=== PATIENT | male | born 1950 | race Caucasian/White ===

== ENCOUNTER 2016-09-01 10:40 | Inpatient (IN) | payer OTHER ==
[2016-09-01 11:03] LABS: Glucose,Whole Blood 86 mg/dL (75-99)
[2016-09-01 11:03] LABS: Basophils # (A) 0.1 k/uL (0-0.2); Basophils % (A) 1 %; CHCM 33.9; Eosinophils # (A) 0.2 k/uL (0-0.7); Eosinophils % (A) 3 %; HCT 45.3 % (39.0-53.0); HDW 2.34; HGB 14.9 gm/dL (13.0-17.5); Luc # (Auto) 0.13; Luc % (Auto) 2; Lymphocytes # (A) 2.5 k/uL (1.0-4.8); Lymphocytes % (A) 41 %; MCH 31.2 pg (25.0-35.0); MCHC 32.9 g/dL (31.0-37.0); MCV 94.8 fL (80.0-100.0); Mean Platelet Volume 7.1; Monocytes # (A) 0.4 k/uL (0-1.0); Monocytes % (A) 6 %; Neutrophils # (A) 2.9 k/uL (1.3-7.7); Neutrophils % (A) 47 %; RBC 4.77 m/uL (4.30-5.90); RDW 12.8 % (11.5-15.5); WBC 6.2 k/uL (3.8-10.6)
--- NOTE | 2016-09-01 11:05 | ED ---
General Adult HPI - General Chief complaint: Neuro Symptoms/Deficit Stated complaint: Fall/Dementia Time Seen by Provider: 09/01/16 10:44 Source: patient, EMS, RN notes reviewed Mode of arrival: EMS Limitations: altered mental status - History of Present Illness Initial comments: Patient is a pleasant [age]-year-old male presenting to the emergency Department with change in mental status. Patient has history of dementia. Patient reportedly was taken off his dementia medicine and has had increased altered mental status over the past week. Patient was taken off of this because they felt it was not working. Patient did have a fall. Patient denies any pain. Patient is a poor historian. - Related Data Allergies Allergy/AdvReac Type Severity Reaction Status Date / Time procaine [From Novocain] Allergy Unknown Verified 09/01/16 11:07 Review of Systems ROS Statement: Those systems with pertinent positive or pertinent negative responses have been documented in the HPI. ROS Other: All systems not noted in ROS Statement are negative. Constitutional: Denies: fever Eyes: Denies: eye pain ENT: Denies: ear pain Respiratory: Denies: cough Cardiovascular: Denies: chest pain Endocrine: Denies: fatigue Gastrointestinal: Denies: abdominal pain Genitourinary: Denies: dysuria Musculoskeletal: Denies: back pain Skin: Denies: rash Neurological: Reports: confusion Past Medical History Past Medical History: Unable to Obtain, Dementia History of Any Multi-Drug Resistant Organisms: None Reported Past Surgical History: Unable to Obtain Past Psychological History: No Psychological Hx Reported Smoking Status: Former smoker Past Alcohol Use History: Rare Past Drug Use History: None Reported General Exam Limitations: altered mental status General appearance: alert, in no apparent distress, other (Patient has difficulty following some commands.) Head exam: Present: atraumatic Eye exam: Present: normal appearance, PERRL ENT exam: Present: normal oropharynx Neck exam: Present: normal inspection. Absent: tenderness, meningismus Respiratory exam: Present: normal lung sounds bilaterally Cardiovascular Exam: Present: regular rate, normal rhythm GI/Abdominal exam: Present: soft. Absent: tenderness Extremities exam: Present: normal inspection Neurological exam: Present: alert, altered, CN II-XII intact. Absent: motor sensory deficit Expanded Patient oriented to: Present: person. Absent: place, time Motor strength exam: RUE: 5, LUE: 5, RLE: 5, LLE: 5 Psychiatric exam: Present: normal affect, normal mood Skin exam: Absent: rash Course Vital Signs 09/01/16 10:52 Temperature 97.8 F Pulse Rate 55 L Respiratory 18 Rate Blood Pressure 108/55 O2 Sat by Pulse 96 Oximetry EKG Findings - EKG Comments: EKG Findings:: Sinus bradycardia at 56. Normal intervals. Normal axis. Normal QRS. Nonspecific T waves. Medical Decision Making - Medical Decision Making Patient reevaluated and resting comfortably in bed. Family is now present. Family does not feel they're able to take care of him at this time at home. Family does request admission for medication review with hopes of patient going home the future. Case was discussed in detail with Dr. Thompson, who will admit for Dr. Evans. - Lab Data Result diagrams: 09/01/16 10:49 09/01/16 10:49 Lab Results 09/01/16 09/01/16 09/01/16 Range/Units 10:49 10:49 10:49 WBC 6.2 (3.8-10.6) k/uL RBC 4.77 (4.30-5.90) m/uL Hgb 14.9 (13.0-17.5) gm/dL Hct 45.3 (39.0-53.0) % MCV 94.8 (80.0-100.0) fL MCH 31.2 (25.0-35.0) pg MCHC 32.9 (31.0-37.0) g/dL RDW 12.8 (11.5-15.5) % Plt Count 192 (150-450) k/uL Neutrophils % 47 % Lymphocytes % 41 % Monocytes % 6 % Eosinophils % 3 % Basophils % 1 % Neutrophils # 2.9 (1.3-7.7) k/uL Lymphocytes # 2.5 (1.0-4.8) k/uL Monocytes # 0.4 (0-1.0) k/uL Eosinophils # 0.2 (0-0.7) k/uL Basophils # 0.1 (0-0.2) k/uL PT (9.0-12.0) sec INR (<1.1) APTT (22.0-30.0) sec Sodium 145 (137-145) mmol/L Potassium 4.4 (3.5-5.1) mmol/L Chloride 109 H (98-107) mmol/L Carbon Dioxide 26 (22-30) mmol/L Anion Gap 10 mmol/L BUN 10 (9-20) mg/dL Creatinine 0.99 (0.66-1.25) mg/dL Est GFR (MDRD) Af Amer >60 (>60 ml/min/1.73 sqM) Est GFR (MDRD) Non-Af >60 (>60 ml/min/1.73 sqM) Glucose 87 (74-99) mg/dL POC Glucose (mg/dL) (75-99) mg/dL POC Glu Consumer Experience Consultant ID Calcium 9.5 (8.4-10.2) mg/dL Total Bilirubin 1.0 (0.2-1.3) mg/dL AST 30 (17-59) U/L ALT 47 (21-72) U/L Alkaline Phosphatase 91 (38-126) U/L Total Creatine Kinase 97 (55-170) U/L CK-MB (CK-2) 0.7 (0.0-2.4) ng/mL CK-MB (CK-2) Rel Index 0.7 Troponin I <0.012 (0.000-0.034) ng/mL Total Protein 7.1 (6.3-8.2) g/dL Albumin 4.3 (3.5-5.0) g/dL Urine Color Urine Appearance (Clear) Urine pH (5.0-8.0) Ur Specific [place] (1.001-1.035) Urine Protein (Negative) Urine Glucose (UA) (Negative) Urine Ketones (Negative) Urine Blood (Negative) Urine Nitrite (Negative) Urine Bilirubin (Negative) Urine Urobilinogen (<2.0) mg/dL Ur Leukocyte Esterase (Negative) Urine RBC (0-5) /hpf Urine WBC (0-5) /hpf Urine Bacteria (None) /hpf Urine Mucus (None) /hpf Urine Opiates Screen (NotDetected) Ur Oxycodone Screen (NotDetected) Urine Methadone Screen (NotDetected) Ur Propoxyphene Screen (NotDetected) Ur Barbiturates Screen (NotDetected) U Tricyclic Antidepress (NotDetected) Ur Phencyclidine Scrn (NotDetected) Ur Amphetamines Screen (NotDetected) U Methamphetamines Scrn (NotDetected) U Benzodiazepines Scrn (NotDetected) Urine Cocaine Screen (NotDetected) U Marijuana (THC) Screen (NotDetected) 09/01/16 09/01/16 09/01/16 Range/Units 10:49 11:02 12:21 WBC (3.8-10.6) k/uL RBC (4.30-5.90) m/uL Hgb (13.0-17.5) gm/dL Hct (39.0-53.0) % MCV (80.0-100.0) fL MCH (25.0-35.0) pg MCHC (31.0-37.0) g/dL RDW (11.5-15.5) % Plt Count (150-450) k/uL Neutrophils % % Lymphocytes % % Monocytes % % Eosinophils % % Basophils % % Neutrophils # (1.3-7.7) k/uL Lymphocytes # (1.0-4.8) k/uL Monocytes # (0-1.0) k/uL Eosinophils # (0-0.7) k/uL Basophils # (0-0.2) k/uL PT 10.2 (9.0-12.0) sec INR 1.0 (<1.1) APTT 21.2 L (22.0-30.0) sec Sodium (137-145) mmol/L Potassium (3.5-5.1) mmol/L Chloride (98-107) mmol/L Carbon Dioxide (22-30) mmol/L Anion Gap mmol/L BUN (9-20) mg/dL Creatinine (0.66-1.25) mg/dL Est GFR (MDRD) Af Amer (>60 ml/min/1.73 sqM) Est GFR (MDRD) Non-Af (>60 ml/min/1.73 sqM) Glucose (74-99) mg/dL POC Glucose (mg/dL) 86 (75-99) mg/dL POC Glu Consumer Experience Consultant ID Kate Fernandez Calcium (8.4-10.2) mg/dL Total Bilirubin (0.2-1.3) mg/dL AST (17-59) U/L ALT (21-72) U/L Alkaline Phosphatase (38-126) U/L Total Creatine Kinase (55-170) U/L CK-MB (CK-2) (0.0-2.4) ng/mL CK-MB (CK-2) Rel Index Troponin I (0.000-0.034) ng/mL Total Protein (6.3-8.2) g/dL Albumin (3.5-5.0) g/dL Urine Color Light Yellow Urine Appearance Clear (Clear) Urine pH 5.0 (5.0-8.0) Ur Specific [place] 1.004 (1.001-1.035) Urine Protein Negative (Negative) Urine Glucose (UA) Negative (Negative) Urine Ketones Negative (Negative) Urine Blood Trace H (Negative) Urine Nitrite Negative (Negative) Urine Bilirubin Negative (Negative) Urine Urobilinogen <2.0 (<2.0) mg/dL Ur Leukocyte Esterase Negative (Negative) Urine RBC 1 (0-5) /hpf Urine WBC 1 (0-5) /hpf Urine Bacteria Rare H (None) /hpf Urine Mucus Rare H (None) /hpf Urine Opiates Screen Not Detected (NotDetected) Ur Oxycodone Screen Not Detected (NotDetected) Urine Methadone Screen Not Detected (NotDetected) Ur Propoxyphene Screen Not Detected (NotDetected) Ur Barbiturates Screen Not Detected (NotDetected) U Tricyclic Antidepress Not Detected (NotDetected) Ur Phencyclidine Scrn Not Detected (NotDetected) Ur Amphetamines Screen Not Detected (NotDetected) U Methamphetamines Scrn Not Detected (NotDetected) U Benzodiazepines Scrn Detected H (NotDetected) Urine Cocaine Screen Not Detected (NotDetected) U Marijuana (THC) Screen Not Detected (NotDetected) - Radiology Data Radiology results: report reviewed (Computed tomography scan shows atrophy. No acute abnormality.), image reviewed (Two-view chest x-ray shows cardiac megaly. No acute abnormality.) Disposition Clinical Impression: Altered mental status Disposition: ADMITTED IP TO THIS HOSP
[2016-09-01 11:15] LABS: ALT 47 U/L (21-72); AST 30 U/L (17-59); Alkaline Phosphatase 91 U/L (38-126); Anion Gap 10 mmol/L; Blood Urea Nitrogen 10 mg/dL (9-20); Calcium 9.5 mg/dL (8.4-10.2); Carbon Dioxide 26 mmol/L (22-30); Chloride 109 mmol/L (98-107); Glucose 87 mg/dL (74-99); Non-African American GFR(MDRD) >60 (>60 ml/min/1.73 sqM); Potassium 4.4 mmol/L (3.5-5.1); Sodium 145 mmol/L (137-145); Total Protein 7.1 g/dL (6.3-8.2)
--- NOTE | 2016-09-01 11:24 | XR ---
EXAMINATION TYPE: XR chest 2V DATE OF EXAM: 09/01/2016 11:21 AM COMPARISON: NONE HISTORY: Altered mental status and weakness. TECHNIQUE: Frontal and lateral views of the chest are obtained. FINDINGS: There is elevated left hemidiaphragm. Underlying emphysematous change is not excluded. Ther e is no focal air space opacity, pleural effusion, or pneumothorax seen. The cardiac silhouette size is enlarged. The osseous structures are intact. IMPRESSION: Cardiomegaly without acute pulmonary process.
[2016-09-01 11:31] LABS: Creatine Kinase 97 U/L (55-170)
[2016-09-01 11:33] LABS: Prothrombin Time 10.2 sec (9.0-12.0)
[2016-09-01 11:40] LABS: Partial Thromboplastin Time 21.2 sec (22.0-30.0)
[2016-09-01 11:44] LABS: Creatine Kinase MB 0.7 ng/mL (0.0-2.4); Troponin I <0.012 ng/mL (0.000-0.034)
--- NOTE | 2016-09-01 12:10 | CT ---
EXAMINATION TYPE: CT brain wo con DATE OF EXAM: 09/01/2016 12:01 PM HISTORY: Fall/Dementia. Altered mental status. CT DLP: 1081.60 mGycm. Automated Exposure Control for Dose Reduction was Utilized. TECHNIQUE: CT scan of the head is performed without contrast. COMPARISON: CT brain June 25, 2014. FINDINGS: There is no acute intracranial hemorrhage or midline shift identified. There is diffuse v entricular and sulcal prominence consistent with diffuse age-related cerebral atrophy. There is low- attenuation in the periventricular white matter consistent with chronic small vessel ischemic change. Mild mucosal thickening involving anterior ethmoid sinuses bilaterally is present. Remainder the par anasal sinuses are clear. The globes are intact bilaterally. IMPRESSION: No acute intracranial hemorrhage or midline shift. There is mild Diffuse age-related ce rebral atrophy and chronic small vessel ischemic change redemonstrated, no significant change from pr ior study is seen
[2016-09-01 12:39] LABS: Appearance,Urine Clear (Clear); Bacteria,Urine Rare /hpf; Bilirubin,Urine Negative (Negative); Glucose,Urine (UA) Negative (Negative); Ketones,Urine Negative (Negative); Leukocyte Esterase,Urine Negative (Negative); Mucus,Urine Rare /hpf; Nitrite,Urine Negative (Negative); Particle Count 1072; Protein,Urine Negative (Negative); RBC,Urine 1 /hpf (0-5); Specific Gravity,Urine 1.004 (1.001-1.035); UA Billing (MACRO vs. MICRO) MICRO; Urobilinogen,Urine <2.0 mg/dL (<2.0); WBC,Urine 1 /hpf (0-5)
[2016-09-01] MEDS ORDERED: LORazepam 2 MG/ML SYRINGE IV STA (12:47)
[2016-09-01] MEDS ORDERED: NALOXONE 0.4 MG/ML 1 ML VIAL IV PRN (13:12)
[2016-09-01] MEDS ORDERED: LORazepam 2 MG/ML SYRINGE IV PRN (13:12)
[2016-09-01] MEDS ORDERED: NICOTINE 14MG/24HR PATCH TRANSDERM STA (13:26)
[2016-09-01] MEDS ORDERED: ALPRAZolam 0.5 MG TAB PO PRN (14:26)
[2016-09-01] MEDS: SODIUM CHLORIDE 0.9% 1,000 ML IV SCH (14:42)
[2016-09-01] MEDS ORDERED: HALOPERIDOL 1 MG TAB PO STA (16:00)
[2016-09-01 16:40] VITALS: BMI 29.5
[2016-09-01] MEDS: LORazepam 2 MG/ML SYRINGE IV PRN (18:54)
--- NOTE | 2016-09-01 20:11 | P.CNNES ---
History of Present Illness Consult date: 09/01/16 Requesting physician: Marcial Espinoza Chief complaint: Altered Mental Status History of Present Illness: Patient is a pleasant 66-year-old male being consulted on by neurology for altered mental status. Patient has history of dementia. Patient reportedly was taken off his dementia medicine and has had increased altered mental status with periods of agitation over the past week. Patient was taken off of this because they felt it was not working per PCP. Patient did have a fall at home witnessed by his . Patient denies any pain. Patient is a poor historian. All information obtained from spouse. At this time upon examination, patient was alert to name in bed with family at the bedside. Patient had a sitter in the room due to agitation. Patient's states that the patient has significantly declined in the last 48 hours in regard to wandering, agitation and generalized increased confusion. Review of Systems all systems not previously noted in HPI above are negative Past Medical History Past Medical History: Dementia, GERD/Reflux, Memory Impairment History of Any Multi-Drug Resistant Organisms: None Reported Past Surgical History: Unable to Obtain Additional Past Surgical History / Comment(s): colonoscopy Past Psychological History: ADD/ADHD, Anxiety, Depression Additional Psychological History / Comment(s): no longer on meds for adhd Smoking Status: Current every day smoker Past Alcohol Use History: Rare Past Drug Use History: None Reported - Past Family History Father Family Medical History: Cancer Additional Family Medical History / Comment(s): lung Mother Family Medical History: Cancer Additional Family Medical History / Comment(s): lung Medications and Allergies Home Medications Medication Instructions Recorded Confirmed Type ALPRAZolam [Xanax] 1 mg PO QID PRN 09/01/16 09/01/16 History Cholecalciferol [Vitamin D3] 1,000 unit PO DAILY 09/01/16 09/01/16 History Cyanocobalamin [Vitamin B-12] 500 mcg PO DAILY 09/01/16 09/01/16 History Escitalopram [Lexapro] 10 mg PO DAILY 09/01/16 09/01/16 History Allergies Allergy/AdvReac Type Severity Reaction Status Date / Time procaine [From Novocain] Allergy Unknown Verified 09/01/16 13:23 Physical Examination - Vital Signs Vital Signs: Vital Signs Temp Pulse Pulse Resp BP BP Pulse Ox 09/01/16 16:58 97.2 F L 53 L 18 150/67 98 09/01/16 13:20 98 F 60 20 130/68 95 Intake and Output 09/01/16 09/01/16 09/01/16 06:59 14:59 22:59 Other: Weight 93.2 kg Patient Weight 09/02/16 06:59 Weight 93.2 kg Constitutional: AOx1, uncooperative Head: NC/AT Throat: Supple, no masses Respiratory: No increased work of breathing Cardiac: Regular rate and Rhythm GI: non tender, non distended Musculoskeletal: does not follow commands Neurological: does not follow commands, moves all extremities purposefully Integementary: no rash, no erythema Psychiatric: extremely confused, agitated Results - Laboratory Findings CBC and BMP: 09/01/16 10:49 09/01/16 10:49 - Diagnostic Findings Comments: CT of the brain revealed no acute intracranial process. Assessment and Plan (1) Altered mental status Status: Acute Plan: 1. Altered mental status: Patient is known to have dementia and appears to have increased altered mental status. At this time all testing has been negative. Further diagnostic workup including EEG, carotid Doppler, serum homocystine, B12 level, TSH, MRI of the brain are pending. Patient was placed back on Aricept 10 mg daily at bedtime. Patient was also prescribed Haldol 1 mg every 12 hours for agitation. Status:neurology will continue to follow updates as needed or warranted. If you have any questions please feel free to contact our office. I discussed the patient's pertinent medical information with Dr. Owusu. He agrees with the plan of care as implemented.
[2016-09-01] MEDS: HALOPERIDOL 1 MG TAB PO SCH (22:17)
[2016-09-01] MEDS: DONEPEZIL 10 MG TAB PO SCH (22:17)
[2016-09-02] MEDS: CYANOCOBALAMIN 500 MCG TAB PO SCH (08:16)
[2016-09-02] MEDS: ESCITALOPRAM 10 MG TAB PO SCH (08:16)
[2016-09-02] MEDS: HALOPERIDOL 1 MG TAB PO SCH ×2 (08:16→22:44)
[2016-09-02] MEDS: CHOLECALCIFEROL 1,000 UNIT TAB PO SCH (08:16)
--- NOTE | 2016-09-02 08:18 | HP ---
DATE OF SERVICE: 09/01/2016 CHIEF COMPLAINT: Altered mental status changes. HISTORY OF PRESENT ILLNESS: Mr. Rizvi is a 66-year-old male with past medical history of dementia, GERD, anxiety, depression, brought in by his family members for change in his mental status. The patient has history of dementia which was diagnosed 2 years back and it has been rapidly progressive. The patient cannot give me any history so most of it is taken from his who is at the bedside. mentions that over the past 48 hours his mentation has changed. He has been agitated and then trying to get out of the bed. Had a couple of falls at home and so she brought him in for further evaluation. As per his , patient was diagnosed with dementia only 2 years back, but has been progressively deteriorating. Now she cannot leave him all alone by himself. She has to stay with him /, but over the past 48 hours, he has been agitated and did not get to sleep. She also mentions that his brother also had similar kind of situation in the past and he is . Review of systems cannot be done as the patient is agitated and could not give any history. ALLERGIES: PROCAINE. PAST MEDICAL HISTORY: Positive for dementia and gastroesophageal reflux disease. Patient's home medications: 1. He is on vitamin B12 5000 mcg p.o. daily. 2. Lexapro 10 mg p.o. daily. 3. Vitamin D 3000 units p.o. daily. 4. Xanax 1 mg q.i.d. p.r.n. for anxiety. SOCIAL HISTORY: The patient is a former smoker. No alcohol abuse. FAMILY HISTORY: Positive for dementia in his brother who is . PAST SURGICAL HISTORY: None reported. On examination, patient's vitals: Temperature 97.2, heart rate is 50 to 60, respiratory rate 18, blood pressure 150/67, saturating at 98% on room air. GENERAL EXAMINATION: The patient to be in no acute distress, but is very agitated and trying to get out of the bed and moving all his extremities. HEAD: Atraumatic. EYES: Pupils round and reactive to light. NECK: No JVD. No thyromegaly. CARDIOVASCULAR: S1, S2 heard. RESPIRATORY: Bilateral breath sounds are positive. GI: Abdomen is soft. Bowel sounds positive. No tenderness. No guarding. EXTREMITIES: No edema. No cyanosis. CHIEF FINANCIAL OFFICER: He is awake, cannot follow commands. No focal neurological deficits. PSYCHIATRIC: Patient is agitated. MUSCULOSKELETAL: No joint swellings or deformities. The patient's labs: White count of 6.2, hemoglobin is 14.9, platelets of 192, sodium 145, potassium 4.4, chloride 109, bicarb 26, BUN 10, creatinine 0.99. UA is negative for UTI. UDS is positive for benzos. Patient did get a chest x-ray that was negative for any cardiopulmonary process and also had a CT scan of the brain, which was negative for any serum infarct or bleed. ASSESSMENT AND PLAN: Encephalopathy of unclear etiology currently at present, but can be due to progressive worsening of his dementia. Neurology services have been consulted and patient he is scheduled to get an MRI of the brain along with EEG. Will also check him for syphilis and hypothyroidism. Will rule out the reversible causes of dementia. We will resume patient's home medications as the patient is agitated. He has been getting Ativan with no improvement, so he has been placed on Haldol. Will also get a sitter at the bedside. Overall prognosis is guarded. The treatment care plan was discussed with his and will also have social services counselor on board and further recommendations to follow depending on the progress of the patient. BILLIE
[2016-09-02] MEDS: LORazepam 2 MG/ML SYRINGE IV PRN ×2 (10:18→17:18)
[2016-09-02] MEDS: NICOTINE 21MG/24HR PATCH TRANSDERM SCH (11:20)
--- NOTE | 2016-09-02 11:32 | US ---
EXAMINATION TYPE: US carotid duplex BILAT DATE OF EXAM: 09/02/2016 11:22 AM COMPARISON: NONE CLINICAL HISTORY: ams. exam done portably on restless Alzheimer patient. EXAM MEASUREMENTS: RIGHT: Peak Systolic Velocity (PSV) cm/sec ----- Right CCA: 67.1 ----- Right ICA: 93.3 ----- Right ECA: 70.2 ICA/CCA ratio: 1.4 RIGHT: End Diastole cm/sec ----- Right CCA: 20.9 ----- Right ICA: 23.0 ----- Right ECA: 13.1 LEFT: Peak Systolic Velocity (PSV) cm/sec ----- Left CCA: 67.1 ----- Left ICA: 100.0 ----- Left ECA: 104.8 ICA/CCA ratio: 1.5 LEFT: End Diastole cm/sec ----- Left CCA: 14.7 ----- Left ICA: 37.0 ----- Left ECA: 16.0 VERTEBRALS (direction of flow): Right Vertebral: Antegrade Left Vertebral: Antegrade TECHNOLOGIST IMPRESSION: No significant stenosis seen, no elevated velocities, mild plaque noted. Grayscale, color Doppler, spectral Doppler imaging performed of the carotid arteries. Mild atheromato us changes are present. IMPRESSION: No hemodynamically significant stenosis of the proximal internal carotid arteries bilate rally by Doppler criteria, and indirect measurement of carotid stenosis
[2016-09-02] MEDS: SODIUM CHLORIDE 0.9% 1,000 ML IV SCH (12:23)
--- NOTE | 2016-09-02 14:19 | P.PN ---
Subjective Principal diagnosis: Dementia possible Lewy body disorder Patient is a 66-year-old male being followed by neurology for altered mental status secondary to history of dementia. Patient poorly was taken off his dementia medication as had increased altered mental status with periods of agitation over the past week. Patient was taken off this because they felt it was not working per PCP. Patient did have a fall at home witnessed by his . Patient denies any pain. Patient is a poor historian. All information obtained from spouse. At this time upon examination, patient was alert to name and bed side. Patient had significantly less agitation today than yesterday after being started on Haldol every 12 hours. He was still only responsive to name. Objective - Vital Signs Vital signs: Vital Signs Temp 99.4 F 09/02/16 06:59 Pulse 59 L 09/02/16 06:59 Resp 20 09/02/16 06:59 BP 121/69 09/02/16 06:59 Pulse Ox 94 L 09/02/16 06:59 Intake & Output 09/01/16 09/02/16 09/02/16 18:59 06:59 18:59 Weight 93.2 kg Other: # Voids 1 - Exam Constitutional: AOx1, cooperative Head: NC/AT Throat: Supple, no masses Respiratory: No increased work of breathing Cardiac: Regular rate and Rhythm GI: non tender, non distended Musculoskeletal: does not follow commands Neurological: does not follow commands, moves all extremities purposefully. Integementary: no rash, no erythema Psychiatric: mood and affect appropriate - Labs CBC & Chem 7: 09/01/16 10:49 09/01/16 10:49 Assessment and Plan (1) Altered mental status Status: Acute Plan: 1. Altered mental status secondary to dementia: Patient is known to have dementia and appears to have increased altered mental status. At this time all testing has been negative. Further diagnostic workup including EEG-still pending, carotid Doppler was normal, serum homocystine still pending, B12 level was normal, TSH was normal, MRI of the brain still pending. Patient was placed back on Aricept 10 mg daily at bedtime. Patient was also prescribed Haldol 1 mg every 12 hours for agitation which does appear to have decreased his agitation. Continue Haldol existing dose and frequency. altered mental status appears likely secondary to progression of his dementia. Status:neurology will continue to follow updates as needed or warranted. If you have any questions please feel free to contact our office. I discussed the patient's pertinent medical information with Dr. Owusu. He agrees with the plan of care as implemented.
[2016-09-02] MEDS: DONEPEZIL 10 MG TAB PO SCH (22:44)
--- NOTE | 2016-09-03 08:22 | P.PN ---
Subjective Principal diagnosis: This is a continue progress on a 66-year-old white male essentially admitted for worsening dementia. He is now on Aricept and Haldol. Seems much more calm today. Otherwise, had a long discussion with his who states that this is the first time that he has slept in the last 3 days. The patient seems much more relaxed but the is concerned that she might not be able to take care of him in his current mental state. EEG is pending. I do appreciate neurology input. Objective - Vital Signs Vital signs: Vital Signs Temp 97.3 F L 09/03/16 07:00 Pulse 65 09/03/16 07:00 Resp 18 09/03/16 07:00 BP 116/72 09/03/16 07:00 Pulse Ox 95 09/03/16 07:00 Intake & Output 09/02/16 09/03/16 09/03/16 18:59 06:59 18:59 Intake Total 550 Balance 550 Intake: Oral 550 Other: # Voids 3 4 # Bowel Movements 2 - Constitutional General appearance: Present: average body habitus - Neck Neck: Absent: lymphadenopathy - Respiratory Respiratory: bilateral: CTA - Cardiovascular Rhythm: regular Heart sounds: normal: S1, S2 - Gastrointestinal General gastrointestinal: Present: soft. Absent: tenderness - Neurologic Neurologic Comment(s): Disoriented to time and place. - Psychiatric Psychiatric: Absent: appropriate affect - Labs CBC & Chem 7: 09/01/16 10:49 09/01/16 10:49 Assessment and Plan (1) Dementia Status: Acute (2) Agitation Status: Acute (3) Altered mental status Status: Acute Plan: Continue current regimen medication. I worry about prognosis and his ability to be taken care of at home. Discharge planning/community mental health social worker. Await EEG. Time with Patient: Less than 30
[2016-09-03] MEDS: HALOPERIDOL 1 MG TAB PO SCH ×2 (08:38→20:07)
[2016-09-03] MEDS: NICOTINE 21MG/24HR PATCH TRANSDERM SCH (08:38)
[2016-09-03] MEDS: CHOLECALCIFEROL 1,000 UNIT TAB PO SCH (08:38)
[2016-09-03] MEDS: CYANOCOBALAMIN 500 MCG TAB PO SCH (08:38)
[2016-09-03] MEDS: ESCITALOPRAM 10 MG TAB PO SCH (08:39)
--- NOTE | 2016-09-03 08:46 | PN ---
DATE OF SERVICE: 09/02/2016 Chief complaint is altered mental status changes. HOSPITAL COURSE: Mr. Rizvi is a 66-year-old male with the past medical history of dementia, GERD, anxiety, depression, brought in by his family members with acute change in his mental status. Patient has history of dementia that has progressively worsened over the past 2 weeks, but they noticed a significant change in his mentation in the past 48 hours as he was much agitated and trying to get out of the bed and did not sleep for the past couple of days. As the patient was very restless in the hospital, he has been started on Haldol by Neurology and patient did calm down with Haldol and he is also getting Ativan on p.r.n. basis. Current, the patient seems to be having a nap. His is at the bedside. Review of systems could not be done as the patient does not provide any history. Patient's medications have been reviewed. On examination, patient's vital signs temperature 99.4, heart rate 59, respiratory rate 20, blood pressure 121/69, saturating at 94% on room air. GENERAL EXAMINATION: Patient is comfortably sleeping in the bed, appears to be in no acute distress. Head is atraumatic. CARDIOVASCULAR: S1, S2 heard. RESPIRATORY: Bilateral breath sounds are positive. GI: Abdomen is soft. Bowel sounds positive. EXTREMITIES: No edema. No cyanosis. Patient's labs: No new labs from this morning. The last set that were ordered by Neurology are still pending. ASSESSMENT AND PLAN: 1. Encephalopathy, most likely secondary to a progressive worsening of his dementia. Neurology has been consulted and as per their request, patient is getting some lab work done but they also requested that the patient should be getting a MRI which I am really not sure if the patient will be able to stay still while getting an MRI. 2. Acute agitation. Patient seems to be well with Haldol. 3. Gastroesophageal reflux disease. 4. Anxiety and depression. 5. Family history of Lewy Body dementia in his brother. PLAN: Currently and AYDIN was found in the pending neurology decorous. GI: Patient is doing better on Haldol, continue with it and overall prognosis is guarded. The treatment care plan was discussed with the patient's who was at the bedside and further recommendations depending on the progress of the patient. MTDD
[2016-09-03] MEDS ORDERED: LORazepam 2 MG/ML SYRINGE IV ONE ×2 (11:29→11:50)
[2016-09-03] MEDS: TIMOLOL 0.5% OPHTH DROPS 5 ML BTL RIGHT EYE SCH (11:52)
[2016-09-03] MEDS ORDERED: LORazepam 2 MG/ML SYRINGE ONE (14:08)
[2016-09-03] MEDS: SODIUM CHLORIDE 0.9% 1,000 ML IV SCH (14:11)
--- NOTE | 2016-09-03 15:10 | MR ---
EXAMINATION TYPE: MR brain wo con DATE OF EXAM: 09/03/2016 3:00 PM COMPARISON: NONE HISTORY: Alter mental status T1-weighted sagittal, T2, FLAIR, and diffusion axial views of the brain are submitted. Patient could not continue with additional sequences. There is no evidence of acute ischemia. The ventricles, basal cisterns, and sulci overlying the conv exities are consistent with moderate degenerative change. Periventricular and deep white matter areas of abnormal signal are nonspecific.. There is no mass effect. Craniocervical junction maintained. Sella turcica has a normal appearance. No cerebellopontine angle mass. Changes of chronic sinusitis noted. IMPRESSION: 1. Limited exam demonstrates acute intracranial process. 2. Nonspecific white matter changes. BE seen with remote ischemia, demyelinating process and other et iologies. Remote microvascular ischemia favored. 3. The vertebral basilar system is diminutive. Correlate for vertebrobasilar insufficiency. If clinic ally warranted MRA could be obtained.
--- NOTE | 2016-09-03 20:01 | P.PN ---
Subjective Principal diagnosis: Dementia - family history of Lewy body disorder Patient is a 66-year-old male being followed by neurology for altered mental status secondary to history of dementia. Patient poorly was taken off his dementia medication as had increased altered mental status with periods of agitation over the past week. Patient was taken off this because they felt it was not working per PCP. Patient did have a fall at home witnessed by his . Patient denies any pain. Patient is a poor historian. All information obtained from spouse. At this time upon examination, patient was alert to name at bed side. Patient had significantly less agitation today than yesterday after being started on Haldol every 12 hours. He was still only responsive to name, but was ambulating with assistance. He was unsteady on his feet and needs assistance with all ambulation activities and at times needs a two person assist. Patient's states that since the Aricept was added along with Haldol, he has become less agitated over time. She is pleased with his demeanor but is very concerned about his safety and risk for falls. Patient was in no acute distress on contact. Objective - Vital Signs Vital signs: Vital Signs Temp 97.5 F L 09/03/16 15:00 Pulse 64 09/03/16 15:00 Resp 20 09/03/16 15:00 BP 119/79 09/03/16 15:00 Pulse Ox 98 09/03/16 15:00 Intake & Output 09/03/16 09/03/16 09/04/16 06:59 18:59 06:59 Intake Total 550 Balance 550 Intake: Oral 550 Other: # Voids 4 3 - Exam Constitutional: AOx1, cooperative Head: NC/AT Throat: Supple, no masses Respiratory: No increased work of breathing Cardiac: Regular rate and Rhythm GI: non tender, non distended Musculoskeletal: Accessioner strengths are equal bilaterally 5/5, Lower extremity strengths are equal bilaterally at 3/5 and unsteady. Neurological: CN II-XII in tact, patient was AOx1, speech and language are incongruent with thought , no unilateralizing weakness, no seizure activity note on physical exam. Sensation was normal. Integementary: no rash, no erythema Psychiatric: mood is blunted, patient is very confused - Labs CBC & Chem 7: 09/01/16 10:49 09/01/16 10:49 Assessment and Plan (1) Altered mental status Status: Acute Plan: 1. Altered mental status secondary to dementia: Patient is known to have dementia and appears to have increased altered mental status. At this time all testing has been negative. Further diagnostic workup including EEG-still pending, carotid Doppler was normal, serum homocystine still pending, B12 level was normal, TSH was normal, MRI of the brain still pending. Patient was placed back on Aricept 10 mg daily at bedtime. Patient was also prescribed Haldol 1 mg every 12 hours for agitation which does appear to have decreased his agitation. Continue Haldol existing dose and frequency and Aricept existing dose and frequency at discharge. altered mental status appears likely secondary to progression of his dementia. Recommend discussion about significant home care services or placement any suitable facility for long-term care and treatment. Patient is a safety risk due to increased risk for falls, disorientation, agitation. Status:neurology will clear the patient for discharge from a neurological standpoint. Patient to follow-up in our office within 10-14 days for medication adjustment reassessment. I discussed the patient's pertinent medical information with Dr. Owusu. He agrees with the plan of care as implemented.
[2016-09-03] MEDS: DONEPEZIL 10 MG TAB PO SCH (20:07)
[2016-09-04] MEDS: NICOTINE 21MG/24HR PATCH TRANSDERM SCH (07:53)
[2016-09-04] MEDS: CYANOCOBALAMIN 500 MCG TAB PO SCH (07:53)
[2016-09-04] MEDS: ESCITALOPRAM 10 MG TAB PO SCH (07:53)
[2016-09-04] MEDS: CHOLECALCIFEROL 1,000 UNIT TAB PO SCH (07:53)
[2016-09-04] MEDS: HALOPERIDOL 1 MG TAB PO SCH ×2 (07:53→20:11)
[2016-09-04] MEDS: TIMOLOL 0.5% OPHTH DROPS 5 ML BTL RIGHT EYE SCH (07:53)
--- NOTE | 2016-09-04 08:29 | P.PN ---
Subjective Principal diagnosis: This is a continue progress on a 66-year-old white male essentially admitted for worsening dementia. He is now on Aricept and Haldol. Seems much more calm today. This is a 66-year-old white male essentially admitted for altered mental status and worsening dementia. He seems to be regressing a little bit this morning. Question medication issues and tolerance. Ativan seems to make himself agitated at times. Otherwise, had a long discussion with his who is resigned to the fact that he most likely needs long-term care.ADLS are Difficult and he is a 2 person transfer at this time. Objective - Vital Signs Vital signs: Vital Signs Temp 99.5 F 09/04/16 07:00 Pulse 66 09/04/16 07:00 Resp 16 09/04/16 07:00 BP 118/71 09/04/16 07:00 Pulse Ox 95 09/04/16 07:00 Intake & Output 09/03/16 09/04/16 09/04/16 18:59 06:59 18:59 Intake Total 370 Balance 370 Intake: Oral 370 Other: # Voids 3 2 - Constitutional General appearance: Present: average body habitus - EENT Eyes: Absent: abnormal pupil - Respiratory Respiratory: bilateral: CTA - Cardiovascular Rhythm: regular Heart sounds: normal: S1, S2 - Gastrointestinal General gastrointestinal: Present: scaphoid, soft. Absent: tenderness - Neurologic Neurologic Comment(s): Dementia behavior with poor memory. He is barely able to follow commands appropriately today. - Musculoskeletal Musculoskeletal: Present: generalized weakness - Psychiatric Psychiatric: Absent: intact judgment & insight - Labs CBC & Chem 7: 09/01/16 10:49 09/01/16 10:49 Assessment and Plan (1) Dementia Status: Acute (2) Agitation Status: Acute (3) Altered mental status Status: Acute Plan: Continue discharge planning element. EEG is pending. MRI result is also pending. Appreciate neurology input. Prognosis is guarded secondary to his multiple mental issues and cognitive deficits
[2016-09-04] MEDS: SODIUM CHLORIDE 0.9% 1,000 ML IV SCH (12:26)
[2016-09-04] MEDS: DONEPEZIL 10 MG TAB PO SCH (20:11)
[2016-09-05] MEDS: TIMOLOL 0.5% OPHTH DROPS 5 ML BTL RIGHT EYE SCH (07:38)
[2016-09-05] MEDS: NICOTINE 21MG/24HR PATCH TRANSDERM SCH (07:38)
[2016-09-05] MEDS: ESCITALOPRAM 10 MG TAB PO SCH (07:38)
[2016-09-05] MEDS: CYANOCOBALAMIN 500 MCG TAB PO SCH (07:38)
[2016-09-05] MEDS: HALOPERIDOL 1 MG TAB PO SCH ×2 (07:38→20:17)
[2016-09-05] MEDS: CHOLECALCIFEROL 1,000 UNIT TAB PO SCH (07:38)
--- NOTE | 2016-09-05 08:09 | P.PN ---
Subjective Principal diagnosis: This is a continue progress on a 66-year-old white male essentially admitted for worsening dementia. He is now on Aricept and Haldol. Seems much more calm today. This is a continue present on a 66-year-old white male who is essentially admitted for altered mental status and generalized debility and weakness. He is struggling with severe dementia. EEG is pending today. Had a long discussion with the yesterday who states probable ECF placement. The patient still is disoriented to time and place. The patient does not complain of any significant pain or voiding symptoms. Objective - Vital Signs Vital signs: Vital Signs Temp 97.7 F 09/05/16 07:00 Pulse 66 09/05/16 07:00 Resp 17 09/05/16 07:00 BP 132/75 09/05/16 07:00 Pulse Ox 94 L 09/05/16 07:00 Intake & Output 09/04/16 09/05/16 09/05/16 18:59 06:59 18:59 Other: # Voids 3 1 # Bowel Movements 1 - Constitutional General appearance: Present: cooperative. Absent: average body habitus - EENT Eyes: Absent: abnormal pupil - Respiratory Respiratory: bilateral: CTA - Cardiovascular Rhythm: regular Heart sounds: normal: S1, S2 - Gastrointestinal General gastrointestinal: Absent: tenderness - Neurologic Neurologic Comment(s): Disorientation. - Psychiatric Psychiatric: Absent: intact judgment & insight - Labs CBC & Chem 7: 09/01/16 10:49 09/01/16 10:49 Assessment and Plan (1) Dementia Status: Acute (2) Agitation Status: Acute (3) Altered mental status Status: Acute Plan: Worsening dementia. Probable placement. Await EEG. Anticipate placement in the next 24 hours. Chart planning has been consulted. Time with Patient: Less than 30
--- NOTE | 2016-09-05 12:04 | EEG ---
DATE OF SERVICE: 09/04/2016 REASON FOR TESTING: Altered mental status. AGE: 66Y DESCRIPTION OF THE PROCEDURE: This EEG was performed using a 21-channel digital electroencephalograph, following the international 10 - 20 system. DESCRIPTION OF THE RECORDING: From the beginning of the tracing, and with the patient's eyes closed, the background rhythm was mostly consisting of 6 to 7 Hz theta frequency in the posterior occipital leads. No obvious asymmetry is seen. Occasional movement artifacts and muscle artifacts are seen. Photic stimulation was performed with a minimal driving response seen. No pathological waves were elicited. Hyperventilation was not performed. The patient remains awake throughout the tracing. No epileptiform discharges were seen. INTERPRETATION: This awake EEG is abnormal due to the presence of generalized slowing of the background rhythm, mostly in the theta range. This is consistent with mild encephalopathy. No epileptiform discharges were seen. The absence of epileptiform discharges does not rule out the diagnosis of epilepsy, therefore, clinical correlation is recommended.
[2016-09-05] MEDS: DONEPEZIL 10 MG TAB PO SCH (20:17)
[2016-09-06] MEDS: NICOTINE 21MG/24HR PATCH TRANSDERM SCH (07:52)
[2016-09-06] MEDS: CHOLECALCIFEROL 1,000 UNIT TAB PO SCH (07:52)
[2016-09-06] MEDS: CYANOCOBALAMIN 500 MCG TAB PO SCH (07:53)
[2016-09-06] MEDS: TIMOLOL 0.5% OPHTH DROPS 5 ML BTL RIGHT EYE SCH (07:53)
[2016-09-06] MEDS: ESCITALOPRAM 10 MG TAB PO SCH (07:53)
[2016-09-06] MEDS: HALOPERIDOL 1 MG TAB PO SCH (07:53)
[2016-09-06 08:01] VITALS: BP 121/67; PULSE 63; RESP 18; TEMP 98.6
--- NOTE | 2016-09-06 08:04 | P.DS ---
Providers Date of admission: 09/01/16 13:13 Attending physician: Casey Evans Primary care physician: aCsey Evans - Discharge Diagnosis(es) (1) Dementia Current Visit: Yes Status: Acute (2) Agitation Current Visit: Yes Status: Acute (3) Altered mental status Current Visit: Yes Status: Acute Hospital Course: This is a discharge/transfer summary 66-year-old white male with worsening dementia. He was admitted essentially because the family could not take care of him. He was stabilized from a neurologic standpoint with Haldol and appropriate Xanax. Aricept was restarted. The patient is now stable, we are ascertaining whether he should go to ECF versus home with home health. The patient will be discharged/transferred today once that decision is made. Hopefully, we will be due appropriate rehab at either location. He is discharged in fair condition stable but somewhat a poor prognostic indicator related to his dementia Patient Condition at Discharge: Stable Plan - Discharge Summary Discharge Medication List ALPRAZolam [Xanax] 1 mg PO QID PRN 09/01/16 [History] Cholecalciferol [Vitamin D3] 1,000 unit PO DAILY 09/01/16 [History] Cyanocobalamin [Vitamin B-12] 500 mcg PO DAILY 09/01/16 [History] Escitalopram [Lexapro] 10 mg PO DAILY 09/01/16 [History] Follow up Appointment(s)/Referral(s): Casey Evans MD [Primary Care Provider] - 1 Week Discharge Disposition: TRANSFER TO SNF/ECF
== END 2016-09-06 10:22 | disposition home or self-care (01) | DRG 884 ==
LOC: EC 10:40 → 4MS4W 13:13
PROVIDERS: ADMIT Family Medicine; ATTEND Family Medicine
DX: F03.90 Unspecified dementia, unspecified severity, without behavioral disturbance, psychotic disturbance, mood disturbance, and anxiety (principal); G94 Other disorders of brain in diseases classified elsewhere; K21.9 Gastro-esophageal reflux disease without esophagitis; R00.1 Bradycardia, unspecified; F41.9 Anxiety disorder, unspecified; R45.1 Restlessness and agitation; F32.9 Major depressive disorder, single episode, unspecified; R53.1 Weakness; R26.81 Unsteadiness on feet; F90.9 Attention-deficit hyperactivity disorder, unspecified type; Z88.6 Allergy status to analgesic agent; Z87.891 Personal history of nicotine dependence; Z82.0 Family history of epilepsy and other diseases of the nervous system; Z79.899 Other long term (current) drug therapy; Z80.1 Family history of malignant neoplasm of trachea, bronchus and lung; W19.XXXA Unspecified fall, initial encounter; Y92.019 Unspecified place in single-family (private) house as the place of occurrence of the external cause
CPT/HCPCS: 36415; 70450; 70551; 71020; 80053; 80306; 81001; 82550; 82553; 82607; 83090; 84443; 84484; 85025; 85610; 85730; 93005; 93880; 95816; 96374; 99285

== ENCOUNTER 2016-10-10 13:35 | Inpatient (IN) | payer OTHER ==
--- NOTE | 2016-10-10 14:19 | ED ---
General Adult HPI - General Chief complaint: Altered Mental Status Stated complaint: Altered Mental Status Time Seen by Provider: 10/10/16 13:43 Source: EMS, RN notes reviewed, old records reviewed Mode of arrival: EMS Limitations: no limitations - History of Present Illness Initial comments: This is a 66-year-old male with a ER for evaluation today. Patient is presenting for evaluation of increased altered mental status worsening dementia non-redirectable, multiple falls. Patient suffers from severe dementia. Patient is recently started on Seroquel about a month ago which was keeping food try, at this point that medication is resolved from working. Patient's of is nonverbal. Family states patient is having multiple falls and multiple complaints - Related Data Home Medications Medication Instructions Recorded Confirmed ALPRAZolam [Xanax] 1 mg PO 5XD PRN 09/01/16 10/10/16 Cholecalciferol [Vitamin D3] 1,000 unit PO DAILY 09/01/16 10/10/16 Cyanocobalamin [Vitamin B-12] 500 mcg PO DAILY 09/01/16 10/10/16 Escitalopram Oxalate [Lexapro] 20 mg PO HS 10/10/16 10/10/16 QUEtiapine FUMARATE [SEROquel] 25 mg PO QAM 10/10/16 10/10/16 QUEtiapine [SEROquel] 50 mg PO HS 10/10/16 10/10/16 Previous Rx's Medication Instructions Recorded Donepezil [Aricept] 10 mg PO HS #30 tab 09/06/16 Timolol 0.5% Ophth Soln [Timoptic 1 drops RIGHT EYE DAILY ml 09/06/16 0.5% Ophth Soln] Allergies Allergy/AdvReac Type Severity Reaction Status Date / Time procaine [From Novocain] Allergy Unknown Verified 10/10/16 14:37 haloperidol [From Haldol] AdvReac AGITATION Verified 10/10/16 14:37 lorazepam [From Ativan] AdvReac AGITATION Verified 10/10/16 14:37 Review of Systems ROS Statement: Those systems with pertinent positive or pertinent negative responses have been documented in the HPI. ROS Other: All systems not noted in ROS Statement are negative. Past Medical History Past Medical History: Dementia, GERD/Reflux, Memory Impairment History of Any Multi-Drug Resistant Organisms: None Reported Past Surgical History: Unable to Obtain Additional Past Surgical History / Comment(s): colonoscopy Past Psychological History: ADD/ADHD, Anxiety, Depression Additional Psychological History / Comment(s): no longer on meds for adhd Smoking Status: Current every day smoker Past Alcohol Use History: Rare Past Drug Use History: None Reported - Past Family History Father Family Medical History: Cancer Additional Family Medical History / Comment(s): lung Mother Family Medical History: Cancer Additional Family Medical History / Comment(s): lung General Exam Limitations: altered mental status, physical limitation General appearance: alert, in no apparent distress Head exam: Present: atraumatic, normocephalic, normal inspection Eye exam: Present: normal appearance, PERRL, EOMI. Absent: scleral icterus, conjunctival injection, periorbital swelling ENT exam: Present: normal exam, mucous membranes moist Neck exam: Present: normal inspection. Absent: tenderness, meningismus, lymphadenopathy Respiratory exam: Present: normal lung sounds bilaterally. Absent: respiratory distress, wheezes, rales, rhonchi, stridor Cardiovascular Exam: Present: regular rate, normal rhythm, normal heart sounds. Absent: systolic murmur, diastolic murmur, rubs, gallop, clicks GI/Abdominal exam: Present: soft, normal bowel sounds. Absent: distended, tenderness, guarding, rebound, rigid Extremities exam: Present: normal inspection, full ROM, normal capillary refill. Absent: tenderness, pedal edema, joint swelling, calf tenderness Back exam: Present: normal inspection Neurological exam: Present: alert, oriented X3, CN II-XII intact Psychiatric exam: Present: normal affect, normal mood Skin exam: Present: warm, dry, intact, normal color. Absent: rash Course Vital Signs 10/10/16 13:38 Temperature 98.2 F Pulse Rate 69 Respiratory 18 Rate Blood Pressure 124/64 O2 Sat by Pulse 100 Oximetry EKG Findings - EKG Comments: EKG Findings:: EKG shows normal sinusrhythm rate of 60, MT 132, QRS 94, QTC 404 Medical Decision Making - Medical Decision Making 66 male here for evaluation of increased dementia and agitation, positive x-ray for pneumonia, patient be admitted for treatment of pneumonia and stimulation by neurology - Lab Data Result diagrams: 10/10/16 14:00 10/10/16 14:00 Lab Results 04/26/17 04/26/17 04/26/17 Range/Units 14:00 14:00 14:00 WBC 7.2 (3.8-10.6) k/uL RBC 4.45 (4.30-5.90) m/uL Hgb 14.3 (13.0-17.5) gm/dL Hct 40.6 (39.0-53.0) % MCV 91.2 (80.0-100.0) fL MCH 32.1 (25.0-35.0) pg MCHC 35.2 (31.0-37.0) g/dL RDW 12.6 (11.5-15.5) % Plt Count 212 (150-450) k/uL Neutrophils % 52 % Lymphocytes % 37 % Monocytes % 7 % Eosinophils % 2 % Basophils % 1 % Neutrophils # 3.7 (1.3-7.7) k/uL Lymphocytes # 2.6 (1.0-4.8) k/uL Monocytes # 0.5 (0-1.0) k/uL Eosinophils # 0.2 (0-0.7) k/uL Basophils # 0.1 (0-0.2) k/uL PT 10.0 (9.0-12.0) sec INR 1.0 (<1.1) APTT 23.5 (22.0-30.0) sec Sodium 144 (137-145) mmol/L Potassium 4.2 (3.5-5.1) mmol/L Chloride 108 H (98-107) mmol/L Carbon Dioxide 27 (22-30) mmol/L Anion Gap 9 mmol/L BUN 10 (9-20) mg/dL Creatinine 0.90 (0.66-1.25) mg/dL Est GFR (MDRD) Af Amer >60 (>60 ml/min/1.73 sqM) Est GFR (MDRD) Non-Af >60 (>60 ml/min/1.73 sqM) Glucose 92 (74-99) mg/dL Calcium 9.4 (8.4-10.2) mg/dL Phosphorus 3.9 (2.5-4.5) mg/dL Magnesium 2.2 (1.6-2.3) mg/dL Total Bilirubin 1.0 (0.2-1.3) mg/dL AST 59 (17-59) U/L ALT 110 H (21-72) U/L Alkaline Phosphatase 84 (38-126) U/L Total Protein 6.6 (6.3-8.2) g/dL Albumin 3.9 (3.5-5.0) g/dL Urine Color Urine Appearance (Clear) Urine pH (5.0-8.0) Ur Specific [place] (1.001-1.035) Urine Protein (Negative) Urine Glucose (UA) (Negative) Urine Ketones (Negative) Urine Blood (Negative) Urine Nitrite (Negative) Urine Bilirubin (Negative) Urine Urobilinogen (<2.0) mg/dL Ur Leukocyte Esterase (Negative) 10/10/16 Range/Units 14:00 WBC (3.8-10.6) k/uL RBC (4.30-5.90) m/uL Hgb (13.0-17.5) gm/dL Hct (39.0-53.0) % MCV (80.0-100.0) fL MCH (25.0-35.0) pg MCHC (31.0-37.0) g/dL RDW (11.5-15.5) % Plt Count (150-450) k/uL Neutrophils % % Lymphocytes % % Monocytes % % Eosinophils % % Basophils % % Neutrophils # (1.3-7.7) k/uL Lymphocytes # (1.0-4.8) k/uL Monocytes # (0-1.0) k/uL Eosinophils # (0-0.7) k/uL Basophils # (0-0.2) k/uL PT (9.0-12.0) sec INR (<1.1) APTT (22.0-30.0) sec Sodium (137-145) mmol/L Potassium (3.5-5.1) mmol/L Chloride (98-107) mmol/L Carbon Dioxide (22-30) mmol/L Anion Gap mmol/L BUN (9-20) mg/dL Creatinine (0.66-1.25) mg/dL Est GFR (MDRD) Af Amer (>60 ml/min/1.73 sqM) Est GFR (MDRD) Non-Af (>60 ml/min/1.73 sqM) Glucose (74-99) mg/dL Calcium (8.4-10.2) mg/dL Phosphorus (2.5-4.5) mg/dL Magnesium (1.6-2.3) mg/dL Total Bilirubin (0.2-1.3) mg/dL AST (17-59) U/L ALT (21-72) U/L Alkaline Phosphatase (38-126) U/L Total Protein (6.3-8.2) g/dL Albumin (3.5-5.0) g/dL Urine Color Light Yellow Urine Appearance Clear (Clear) Urine pH 5.5 (5.0-8.0) Ur Specific [place] 1.003 (1.001-1.035) Urine Protein Negative (Negative) Urine Glucose (UA) Negative (Negative) Urine Ketones Negative (Negative) Urine Blood Negative (Negative) Urine Nitrite Negative (Negative) Urine Bilirubin Negative (Negative) Urine Urobilinogen <2.0 (<2.0) mg/dL Ur Leukocyte Esterase Negative (Negative) - Radiology Data Radiology results: report reviewed (Chest x-ray is positive for pneumonia), image reviewed Disposition Clinical Impression: Altered mental status, Dementia, Agitation, Community acquired pneumonia Disposition: ADMITTED IP TO THIS HOSP Condition: Fair Referrals: Casey Evans MD [Primary Care Provider] - 1-2 days
[2016-10-10] MEDS ORDERED: SODIUM CHLORIDE 0.9% 500 ML IV STA (14:22)
--- NOTE | 2016-10-10 14:56 | XR ---
EXAMINATION TYPE: XR chest 2V DATE OF EXAM: 10/10/2016 2:50 PM COMPARISON: 09/01/2016 HISTORY: Shortness of breath TECHNIQUE: Frontal and lateral views of the chest are obtained. FINDINGS: Scattered senescent parenchymal changes noted. Hyperinflation compatible with COPD. Patchy density right lower lobe may reflect developing pneumonia. Correlate clinically No evidence fo r atelectasis. Heart size is stable. Mediastinal structures are stable and grossly unremarkable. No evidence for hilar prominence. Degenerative changes dorsal spine. IMPRESSION: 1. Patchy density right lower lobe may reflect developing pneumonia. Correlate clinically
[2016-10-10 15:09] LABS: Basophils # (A) 0.1 k/uL (0-0.2); Basophils % (A) 1 %; CH 31.6; CHCM 34.8; Eosinophils # (A) 0.2 k/uL (0-0.7); Eosinophils % (A) 2 %; HCT 40.6 % (39.0-53.0); HDW 2.57; HGB 14.3 gm/dL (13.0-17.5); Luc # (Auto) 0.09; Luc % (Auto) 1; Lymphocytes # (A) 2.6 k/uL (1.0-4.8); Lymphocytes % (A) 37 %; MCH 32.1 pg (25.0-35.0); MCHC 35.2 g/dL (31.0-37.0); MCV 91.2 fL (80.0-100.0); Mean Platelet Volume 7.1; Monocytes # (A) 0.5 k/uL (0-1.0); Monocytes % (A) 7 %; Neutrophils # (A) 3.7 k/uL (1.3-7.7); Neutrophils % (A) 52 %; RBC 4.45 m/uL (4.30-5.90); RDW 12.6 % (11.5-15.5); WBC 7.2 k/uL (3.8-10.6); WBC (Perox) 7.33
[2016-10-10 15:10] LABS: Appearance,Urine Clear (Clear); Bilirubin,Urine Negative (Negative); Glucose,Urine (UA) Negative (Negative); Ketones,Urine Negative (Negative); Leukocyte Esterase,Urine Negative (Negative); Nitrite,Urine Negative (Negative); PH, Urine 5.5 (5.0-8.0); Protein,Urine Negative (Negative); Specific Gravity,Urine 1.003 (1.001-1.035); UA Billing (MACRO vs. MICRO) CHEM; Urobilinogen,Urine <2.0 mg/dL (<2.0)
[2016-10-10 15:23] LABS: ALT 110 U/L (21-72); AST 59 U/L (17-59); Alkaline Phosphatase 84 U/L (38-126); Anion Gap 9 mmol/L; Blood Urea Nitrogen 10 mg/dL (9-20); Calcium 9.4 mg/dL (8.4-10.2); Carbon Dioxide 27 mmol/L (22-30); Chloride 108 mmol/L (98-107); Glucose 92 mg/dL (74-99); Magnesium 2.2 mg/dL (1.6-2.3); Non-African American GFR(MDRD) >60 (>60 ml/min/1.73 sqM); Phosphorous 3.9 mg/dL (2.5-4.5); Potassium 4.2 mmol/L (3.5-5.1); Sodium 144 mmol/L (137-145); Total Protein 6.6 g/dL (6.3-8.2)
[2016-10-10] MEDS ORDERED: SODIUM CHLORIDE 0.9% 1,000 ML IV ONE (15:25)
[2016-10-10 15:27] LABS: Creatine Kinase 59 U/L (55-170)
[2016-10-10 15:28] LABS: Partial Thromboplastin Time 23.5 sec (22.0-30.0)
[2016-10-10] MEDS ORDERED: IPRATROPIUM-ALBUTEROL 3 ML NEB INHALATION PRN (15:29)
[2016-10-10] MEDS ORDERED: PNEUMONIA PROTOCOL UTILIZED 1 EACH MISC PO PRN (15:29)
[2016-10-10] MEDS ORDERED: LEVOFLOXACIN 750MG-D5W PMX 750 MG in DEXTROSE/WATER 1 150ML.BAG IVPB STA (15:29)
[2016-10-10 15:41] LABS: Creatine Kinase MB 0.4 ng/mL (0.0-2.4); Troponin I <0.012 ng/mL (0.000-0.034)
[2016-10-10] MEDS ORDERED: HALOPERIDOL 1 MG TAB PO STA (16:12)
[2016-10-10 18:07] VITALS: BMI 24.3
--- NOTE | 2016-10-10 18:27 | CT ---
EXAMINATION TYPE: CT brain wo con DATE OF EXAM: 10/10/2016 5:22 PM COMPARISON: 09/01/2016 INDICATION: Patient has history of dementia. Patient has altered mental status. Patient has multipl e recent falls. DLP: 801.5 mGycm, Automated exposure control for dose reduction was used. CONTRAST: None CT of the brain is performed utilizing 3 mm thick sections through the posterior fossa and 3 mm thick sections through the remaining calvarium. Study is performed within 24 hours of arrival to the hosp ital. No abnormal hyperdensity is present to suggest an acute intracranial hemorrhage. No mass lesion is evident. No acute infarcts are evident. Minimal hypodensities in the periventricular white matter compatible w ith chronic white matter changes. Ventricles and sulci are appropriate for the patient age. Paranasal sinuses and mastoid air cells within the [id number] are clear. IMPRESSIONS: 1. Mild chronic white matter ischemic changes with age-related atrophy. No acute cranial process.
[2016-10-10] MEDS: SODIUM CHLORIDE 0.9% 1,000 ML IV SCH (19:23)
[2016-10-10] MEDS: NICOTINE 7MG/24HR PATCH TRANSDERM SCH (20:03)
[2016-10-10] MEDS: ESCITALOPRAM 20 MG TAB PO SCH (20:13)
[2016-10-10] MEDS: DONEPEZIL 10 MG TAB PO SCH (20:13)
[2016-10-10] MEDS: QUEtiapine 100 MG TAB PO SCH (20:13)
--- NOTE | 2016-10-10 20:16 | P.CNNES ---
History of Present Illness Consult date: 10/10/16 Reason for Consult: This patient is admitted with agitation and worsening dementia. History of Present Illness: This patient is a 66-year-old right-handed white male was brought into the hospital today by his stating that he was having increased agitation and behavioral changes. Patient has a history of severe dementia for which she has been taking Aricept on a regular basis 10 mg at bedtime. Apparently he became very agitated and combative at home. The states she was unable to control him as he became very aggressive. She called EMS and he was brought into the emergency room where he was seen by Dr. Delgado. Patient was found to be very aggressive and did require some Xanax in the ER. He has ALLERGIES to Haldol and Ativan and these could not be administered in the ER at the time of his arrival. He subsequently was given Xanax and did seem to settle down and he was admitted to the observation unit for further management. History was obtained by his who is at bedside. He has a history of dementia dating back about 5 years ago. He has been showing worsening dementia in the past 1 year. His brother recently with the diagnosis of Lewy body dementia. The patient also seems to have some features suggesting a very aggressive and severe form of dementia. When questioned the patient does answer questions appropriately at this time. He has been treated for his underlying behavioral problems with Seroquel as well as Xanax. He also uses Lexapro. Apparently this combination of psychotropic medications was controlling his behavior until recently. The patient does follow some simple commands. He does not appear to be aggressive at this time. He does seem to be restless and cannot sit still for very long. We did recommend a computed tomography scan of the brain to be done. CAT scan was done and revealed mild chronic white matter ischemic changes with age-related atrophy. No acute intracranial process was noted. Chest x-ray revealed a patchy density in the right lower lobe suggesting possible developing pneumonia. Patient is now admitted and neurology has been consulted for further evaluation and recommendations. Review of Systems Constitutional: Denies chills, Denies fever Eyes: denies blurred vision, denies pain Ears, nose, mouth and throat: Denies headache, Denies sore throat Cardiovascular: Denies chest pain, Denies shortness of breath Respiratory: Denies cough Gastrointestinal: Denies abdominal pain, Denies diarrhea, Denies nausea, Denies vomiting Musculoskeletal: Denies myalgias Integumentary: Denies pruritus, Denies rash Neurological: Denies numbness, Denies weakness Psychiatric: Denies anxiety, Denies depression Endocrine: Denies fatigue, Denies weight change Past Medical History Past Medical History: Dementia, GERD/Reflux, Memory Impairment History of Any Multi-Drug Resistant Organisms: None Reported Past Surgical History: No Surgical Hx Reported Additional Past Surgical History / Comment(s): colonoscopy Past Anesthesia/Blood Transfusion Reactions: No Reported Reaction Past Psychological History: ADD/ADHD, Anxiety, Depression Additional Psychological History / Comment(s): no longer on meds for adhd Smoking Status: Former smoker Past Alcohol Use History: Rare Past Drug Use History: None Reported - Past Family History Father Family Medical History: Cancer Additional Family Medical History / Comment(s): lung Mother Family Medical History: Cancer Additional Family Medical History / Comment(s): lung Medications and Allergies Home Medications Medication Instructions Recorded Confirmed Type ALPRAZolam [Xanax] 1 mg PO 5XD PRN 09/01/16 10/10/16 History Cholecalciferol [Vitamin D3] 1,000 unit PO DAILY 09/01/16 10/10/16 History Cyanocobalamin [Vitamin B-12] 500 mcg PO DAILY 09/01/16 10/10/16 History Escitalopram Oxalate [Lexapro] 20 mg PO HS 10/10/16 10/10/16 History QUEtiapine FUMARATE [SEROquel] 25 mg PO QAM 10/10/16 10/10/16 History QUEtiapine [SEROquel] 50 mg PO HS 10/10/16 10/10/16 History Allergies Allergy/AdvReac Type Severity Reaction Status Date / Time procaine [From Novocain] Allergy Unknown Verified 10/10/16 14:37 haloperidol [From Haldol] AdvReac AGITATION Verified 10/10/16 14:37 lorazepam [From Ativan] AdvReac AGITATION Verified 10/10/16 14:37 Physical Examination - Vital Signs Vital Signs: Vital Signs Temp Pulse Pulse Resp BP BP Pulse Ox 10/10/16 19:37 97.9 F 75 16 118/72 97 10/10/16 17:30 62 16 165/76 95 10/10/16 16:45 98.1 F 57 L 18 158/80 99 Intake and Output 10/10/16 10/10/16 10/10/16 06:59 14:59 22:59 Other: Weight 72.575 kg Patient Weight 10/11/16 06:59 Weight 72.575 kg - Constitutional General appearance: average body habitus, cooperative - EENT EENT: PERRL, mucous membranes moist - Respiratory Respiratory: lungs clear, normal breath sounds - Cardiovascular Cardiovascular: regular rate, normal S1, normal S2 Extremities: no peripheral edema bilaterally - Gastrointestinal Gastrointestinal: normoactive bowel sounds - Integumentary Integumentary: normal - Neurologic Cranial nerve examination: PERRL, EOMI, VFF, V1/V2/V3 grossly intact, face symmetric, tongue midline, intact gag reflex, intact corneal reflex, normal palatal elevation Speech examination: intact Sensorimotor examination: intact Detailed motor examination: grossly full strength in all extremities Motor examination - right side: 5/5: biceps, triceps, wrist flexion, wrist extension, section crews activities clerk, hip flexors, knee extensors, dorsiflexion, toe extension (EHL) , plantarflexion Motor examination - left side: 5/5: biceps, triceps, wrist flexion, wrist extension, section crews activities clerk, hip flexors, knee extensors, dorsiflexion, toe extension (EHL) , plantarflexion Detailed sensory examination: intact Reflex and gait examination: intact Reflexes: 1+: ankle, bicep, knee, tricep - Musculoskeletal Musculoskeletal: no pain - Psychiatric Psychiatric: mood/affect appropriate, cooperative Results - Laboratory Findings CBC and BMP: 10/10/16 14:00 10/10/16 14:00 Assessment and Plan (1) Advanced dementia Status: Acute Code(s): F03.90 - UNSPECIFIED DEMENTIA WITHOUT BEHAVIORAL DISTURBANCE (2) Acute encephalopathy Status: Acute Code(s): G93.40 - ENCEPHALOPATHY, UNSPECIFIED (3) Altered mental status Status: Acute Code(s): R41.82 - ALTERED MENTAL STATUS, UNSPECIFIED (4) Community acquired pneumonia Status: Acute Code(s): J18.9 - PNEUMONIA, UNSPECIFIED ORGANISM Plan: This patient is a 66-year-old male with known history of advanced dementia. His dementia has been worsening over the past 1 year. Patient became uncontrollable at home due to agitation and aggressive behavior. He was brought into the emergency room where he was given Xanax and admitted to the hospital. Patient underwent computed tomography scan of the brain which revealed no acute stroke or hemorrhage. Results are as noted above. Chest x- ray reveals him to have a right-sided pneumonia. His neurological examination is very limited as he is still somewhat aggressive and noncooperative at times. After receiving Xanax he has calmed down according to his significantly. Patient is on multiple psychotropic medications including Seroquel, Lexapro, and Xanax. The Xanax seems to help calm him today. He most likely will require higher doses of Seroquel. We are recommending a psychiatry consultation to be done for further assessment of the psychotropic medications. We reviewed the results of the CAT scan today with the who is at bedside. There is concern that his dementia has been significantly progressing over the last several months. He may need to be considered for ECF placement if he continues to show deterioration. We will continue close neurological follow-up of this patient during this admission. His overall prognosis remains very guarded. Case was discussed at length with the patient's in detail. All of her questions were answered. She is aware of his very guarded condition. Time with Patient: Greater than 30
[2016-10-10] MEDS ORDERED: QUEtiapine 25 MG TAB PO SCH (21:00)
[2016-10-10] MEDS ORDERED: QUEtiapine 50 MG TAB PO SCH (21:00)
[2016-10-11] MEDS: SODIUM CHLORIDE 0.9% 1,000 ML IV SCH ×3 (03:45→20:06)
[2016-10-11] MEDS: QUEtiapine 50 MG TAB PO SCH (08:57)
[2016-10-11] MEDS: NICOTINE 7MG/24HR PATCH TRANSDERM SCH (08:57)
[2016-10-11] MEDS ORDERED: QUEtiapine 25 MG TAB PO SCH (09:00)
--- NOTE | 2016-10-11 10:06 | XR ---
EXAMINATION TYPE: XR chest 2V DATE OF EXAM: 10/11/2016 7:07 AM COMPARISON: 10/10/2016 TECHNIQUE: PA and lateral views submitted. HISTORY: Cough possible pneumonia FINDINGS: Subsegmental right perihilar infiltrate. No pleural effusion or pneumothorax. Heart size stable. Arth ropathy of the shoulders. Hypertrophic change of the spine. IMPRESSION: 1. Right perihilar areas of subsegmental atelectasis or infiltrate..
[2016-10-11] MEDS: TIMOLOL 0.5% OPHTH DROPS 5 ML BTL RIGHT EYE SCH (14:01)
[2016-10-11] MEDS: CHOLECALCIFEROL 1,000 UNIT TAB PO SCH (14:01)
[2016-10-11] MEDS: CYANOCOBALAMIN 500 MCG TAB PO SCH (14:01)
[2016-10-11] MEDS ORDERED: LEVOFLOXACIN 750MG-D5W PMX 750 MG in DEXTROSE/WATER 1 150ML.BAG IVPB SCH (17:00)
[2016-10-11] MEDS: ALPRAZolam 0.5 MG TAB PO PRN (19:45)
[2016-10-11] MEDS: ESCITALOPRAM 20 MG TAB PO SCH (20:07)
[2016-10-11] MEDS: QUEtiapine 100 MG TAB PO SCH (20:07)
[2016-10-11] MEDS: DONEPEZIL 10 MG TAB PO SCH (20:07)
--- NOTE | 2016-10-11 22:35 | P.PN ---
Subjective This patient is a 66-year-old right-handed white male who was admitted to hospital with agitation and worsening dementia. Patient has a history of severe and advanced dementia and had been treated for this condition with various medications over the last 2 years. He was admitted to Hospital as his was unable to continue to care for him at home due to agitation and worsening memory problems. His brother was recently diagnosed and from the body dementia. Currently he is also felt to have the same diagnosis. Patient was treated with Xanax and Seroquel. We did request a psychiatry consultation for further assessment of his psychotropic medications. We are still awaiting psychiatry to see the patient today. states that he was only able to get 2 hours of sleep yesterday. He is currently sleeping for the first time today. We will continue to await further evaluation and recommendations from psychiatry regarding this patient's psychotropic medications. As noted yesterday's CAT scan of the brain failed to reveal any evidence of acute stroke or hemorrhage. We will continue all of his current medications. His overall prognosis at this time remains very guarded. Case was discussed at length with the patient's at bedside. All of her questions were answered. She is very much aware of her husbands very guarded condition. Objective - Vital Signs Vital signs: Vital Signs Temp 98.0 F 10/11/16 07:26 Pulse 63 10/11/16 16:00 Resp 18 10/11/16 16:00 BP 126/76 10/11/16 07:26 Pulse Ox 97 10/11/16 07:26 Intake & Output 10/11/16 10/11/16 10/12/16 06:59 18:59 06:59 Intake Total 717 Output Total 800 Balance -83 Intake: Oral 717 Output: Urine 800 Other: Voiding Method Toilet # Voids 1 - Exam Physical examination: PHYSICAL EXAMINATION: Patient is resting comfortably in bed. VITAL SIGNS: Blood pressure is [126/76]. Heart rate is [63]. Respiration is [18] . Temperature is [98.0]. HEENT: Head is atraumatic, neck is supple, there were no carotid bruits. CHEST: Lungs are clear to auscultation and percussion. CARDIAC: S1, S2 normal rate and rhythm. There is no murmur. ABDOMEN: Soft and nontender. Bowel sounds are present. EXTREMITIES: There is no pedal edema. Peripheral pulses are present. Neurological examination: Patient's neurological examination is unchanged from yesterday. Patient is sleeping quietly at this time in bed. - Labs CBC & Chem 7: 10/10/16 14:00 10/10/16 14:00 Assessment and Plan (1) Advanced dementia Status: Acute Code(s): F03.90 - UNSPECIFIED DEMENTIA WITHOUT BEHAVIORAL DISTURBANCE (2) Acute encephalopathy Status: Acute Code(s): G93.40 - ENCEPHALOPATHY, UNSPECIFIED (3) Altered mental status Status: Acute Code(s): R41.82 - ALTERED MENTAL STATUS, UNSPECIFIED (4) Community acquired pneumonia Status: Acute Code(s): J18.9 - PNEUMONIA, UNSPECIFIED ORGANISM Plan: This patient is a 66-year-old male with known history of advanced dementia. His dementia has been worsening over the past 1 year. Patient became uncontrollable at home due to agitation and aggressive behavior. He was brought into the emergency room where he was given Xanax and admitted to the hospital. Patient underwent computed tomography scan of the brain which revealed no acute stroke or hemorrhage. Results are as noted above. Chest x- ray reveals him to have a right-sided pneumonia. His neurological examination is very limited as he is still somewhat aggressive and noncooperative at times. After receiving Xanax he has calmed down according to his significantly. Patient is on multiple psychotropic medications including Seroquel, Lexapro, and Xanax. The Xanax seems to help calm him today. He most likely will require higher doses of Seroquel. We are recommending a psychiatry consultation to be done for further assessment of the psychotropic medications. We reviewed the results of the CAT scan today with the who is at bedside. There is concern that his dementia has been significantly progressing over the last several months. He may need to be considered for ECF placement if he continues to show deterioration. We will continue close neurological follow-up of this patient during this admission. His overall prognosis remains very guarded. We are still awaiting further recommendations from psychiatry regarding his psychotropic medications. Patient was admitted to the hospital is supple admission today from the observation floor. He is sleeping quietly at this time and apparently only had 1-2 hours of sleep all of last night. Case was discussed at length with the patient's in detail. All of her questions were answered. She is aware of his very guarded condition. We will continue to follow the patient closely and will await further recommendations from psychiatry.
[2016-10-12 02:53] VITALS: PULSE 64
[2016-10-12 07:53] VITALS: BP 113/70; RESP 16; TEMP 97.6
--- NOTE | 2016-10-12 08:01 | P.DS ---
Providers Date of admission: 10/11/16 09:36 Attending physician: Casey Evans Primary care physician: Casey Evans - Discharge Diagnosis(es) (1) Acute encephalopathy Current Visit: Yes Status: Acute (2) Advanced dementia Current Visit: Yes Status: Acute (3) Agitation Current Visit: Yes Status: Acute (4) Community acquired pneumonia Current Visit: Yes Status: Acute Patient Condition at Discharge: Fair Plan - Discharge Summary New Discharge Prescriptions: Levofloxacin [Levaquin] 500 mg PO DAILY #7 tab QUEtiapine [SEROquel] 100 mg PO HS #30 tab Discharge Medication List ALPRAZolam [Xanax] 1 mg PO 5XD PRN 09/01/16 [History] Cholecalciferol [Vitamin D3] 1,000 unit PO DAILY 09/01/16 [History] Cyanocobalamin [Vitamin B-12] 500 mcg PO DAILY 09/01/16 [History] Donepezil [Aricept] 10 mg PO HS #30 tab 09/06/16 [Rx] Timolol 0.5% Ophth Soln [Timoptic 0.5% Ophth Soln] 1 drops RIGHT EYE DAILY ml 09/06/16 [Rx] Escitalopram Oxalate [Lexapro] 20 mg PO HS 10/10/16 [History] QUEtiapine FUMARATE [SEROquel] 25 mg PO QAM 10/10/16 [History] QUEtiapine [SEROquel] 50 mg PO HS 10/10/16 [History] Levofloxacin [Levaquin] 500 mg PO DAILY #7 tab 10/12/16 [Rx] QUEtiapine [SEROquel] 100 mg PO HS #30 tab 10/12/16 [Rx] Follow up Appointment(s)/Referral(s): Casey Evans MD [Primary Care Provider] - 1-2 days Activity/Diet/Wound Care/Special Instructions: [facility] [phone]
[2016-10-12] MEDS: SODIUM CHLORIDE 0.9% 1,000 ML IV SCH (08:34)
[2016-10-12] MEDS: TIMOLOL 0.5% OPHTH DROPS 5 ML BTL RIGHT EYE SCH (08:35)
[2016-10-12] MEDS: NICOTINE 7MG/24HR PATCH TRANSDERM SCH (08:35)
[2016-10-12] MEDS: QUEtiapine 50 MG TAB PO SCH (08:35)
[2016-10-12] MEDS: CHOLECALCIFEROL 1,000 UNIT TAB PO SCH (13:07)
[2016-10-12] MEDS: CYANOCOBALAMIN 500 MCG TAB PO SCH (13:07)
--- NOTE | 2016-10-12 13:07 | CONS ---
DATE OF CONSULTATION: 10/12/2016 PURPOSE FOR CONSULTATION: Evaluate for behavioral disturbance secondary to severe dementia. HISTORY OF PRESENTING ILLNESS: The patient was admitted through the Emergency room in referral by the patient's due to severe behavioral difficulties with agitation and aggression. He was combative at home. He was not able to be redirected. He had been on a combination of a Seroquel 25 mg in the morning 50 mg at bedtime, Lexapro 20 mg a day and Xanax 1 mg 5 times a day as needed. On this medication regimen, he apparently was doing fairly well for a period of time, though more recently things have gradually gotten worse. He has had a diagnosis of dementia for the past 5 years, which likely is Lewy Body dementia. His brother just recently with a diagnosis of Lewy body dementia. He has quite advanced dementia. He is on Aricept 10 mg a day in addition to his psychotropic medication. Since he has been on the floor, his Seroquel dose was increased to 50 mg in the morning and 100 mg at bedtime. According to the nurses that has been working with him, he has done much better since then. He is in calm mood. He has not had any signs of agitation or difficult behavior. He has been cooperative with the progress he has made. It is anticipated that he will be going home possibly today. He continues on Xanax, which is currently at 0.5 mg 4 times a day as needed. He also he has been cooperative with care. He has been calm. He slept well last night. When I saw the patient, he did respond to questions, though most of what he said was tangential and fragmented. He sat up in bed. He gave good eye contact. He did not answer any orienting questions. When I would ask him things like what day of the week is it today he made completely tangential comments about some other subject. When asked him the year, he said 20 and then he made another comment about something totally irrelevant. Mostly he sat quietly. Sometimes he would show latency when he would make an effort to respond. Sometimes he did not respond at all. His affect was somewhat constricted. He notes calm and quiet. His mood reserved. He did not appear to be distressed. ASSESSMENT: This 66-year-old male has advanced dementia. He is showing improvement with the adjustment in Seroquel. There may need to be further increase depending on how he does at home. There might be consideration to discontinue Aricept as it is not likely to be benefitting and could be contributing to some level of distress. It would be reasonable to continue Lexapro 20 mg a day as his only other psychotropic medication.
[2016-10-12] MEDS: ALPRAZolam 0.5 MG TAB PO PRN (14:07)
[2016-10-12] MEDS ORDERED: LEVOFLOXACIN 750 MG TAB PO SCH (17:00)
--- NOTE | 2016-11-21 10:36 | P.HPIM ---
History of Present Illness H&P Date: 10/11/16 Chief Complaint: Altered mental status. This is a history and physical on a 66-year-old white male who has been struggling with worsening dementia over the last year. X-ray reveals possible right-sided pneumonia but he is becoming more uncontrollable at home. He is appropriately admitted for treatment. This is very similar to a previous hospitalization recently. Had a long discussion with his has stated he is becoming more and more difficult to control because of his dementia. He is being treated properly for antibiotic pneumonia and neurology has been consulted. No significant chills or sweats stated. Review of Systems ROS unobtainable: due to mental status Past Medical History Past Medical History: Dementia, GERD/Reflux, Memory Impairment History of Any Multi-Drug Resistant Organisms: None Reported Past Surgical History: No Surgical Hx Reported Additional Past Surgical History / Comment(s): colonoscopy Past Anesthesia/Blood Transfusion Reactions: No Reported Reaction Past Psychological History: ADD/ADHD, Anxiety, Depression Additional Psychological History / Comment(s): no longer on meds for adhd Smoking Status: Former smoker Past Alcohol Use History: Rare Past Drug Use History: None Reported - Past Family History Father Family Medical History: Cancer Additional Family Medical History / Comment(s): lung Mother Family Medical History: Cancer Additional Family Medical History / Comment(s): lung Medications and Allergies Home Medications Medication Instructions Recorded Confirmed Type ALPRAZolam [Xanax] 1 mg PO 5XD PRN 09/01/16 10/10/16 History Cholecalciferol [Vitamin D3] 1,000 unit PO DAILY 09/01/16 10/10/16 History Cyanocobalamin [Vitamin B-12] 500 mcg PO DAILY 09/01/16 10/10/16 History Escitalopram Oxalate [Lexapro] 20 mg PO HS 10/10/16 10/10/16 History QUEtiapine FUMARATE [SEROquel] 25 mg PO QAM 10/10/16 10/10/16 History QUEtiapine [SEROquel] 50 mg PO HS 10/10/16 10/10/16 History Allergies Allergy/AdvReac Type Severity Reaction Status Date / Time procaine [From Novocain] Allergy Unknown Verified 10/10/16 14:37 haloperidol [From Haldol] AdvReac AGITATION Verified 10/10/16 14:37 lorazepam [From Ativan] AdvReac AGITATION Verified 10/10/16 14:37 Physical Exam Vitals: Vital Signs Temp Pulse Pulse Resp BP BP BP 10/11/16 07:26 98.0 F 63 18 126/76 10/11/16 03:42 18 10/11/16 03:41 97.4 F L 18 132/61 10/10/16 23:44 16 10/10/16 20:00 16 10/10/16 19:37 97.9 F 75 16 118/72 10/10/16 17:30 62 16 165/76 10/10/16 16:45 98.1 F 57 L 18 158/80 Pulse Ox 10/11/16 07:26 97 10/11/16 03:42 10/11/16 03:41 98 10/10/16 23:44 10/10/16 20:00 10/10/16 19:37 97 10/10/16 17:30 95 10/10/16 16:45 99 Intake and Output 10/10/16 10/11/16 10/11/16 22:59 06:59 14:59 Intake Total 250 Output Total 800 Balance -550 Intake: Oral 250 Output: Urine 800 Other: Voiding Method Toilet Toilet Weight 72.575 kg - Constitutional General appearance: obese - Neck Neck: no lymphadenopathy - Respiratory Respiratory: right: diminished - Cardiovascular Rhythm: regular Heart sounds: normal: S1, S2 - Gastrointestinal General gastrointestinal: soft, no tenderness - Psychiatric Psychiatric: no A&O x's 3, no appropriate affect Results CBC & Chem 7: 10/10/16 14:00 10/10/16 14:00 Thrombosis Risk Factor Assmnt - Choose All That Apply Any of the Below Risk Factors Present?: No Other Risk Factors: Yes Each Risk Factor Represents 2 Points: Age 61-74 years Thrombosis Risk Factor Assessment Total Risk Factor Score: 2 Thrombosis Risk Factor Assessment Level: Low Risk Assessment and Plan (1) Acute encephalopathy Status: Acute (2) Advanced dementia Status: Acute (3) Agitation Status: Acute (4) Community acquired pneumonia Status: Acute Plan: We'll go ahead and treat with appropriate antibiotic therapy for pneumonia. Otherwise, adjust Seroquel and possible use of benzodiazepines, if acceptable to the family. Question social media director for ECF placement. Prognosis is guarded secondary to his severe dementia. Time with Patient: Greater than 30
== END 2016-10-12 15:35 | disposition hospice, home (50) | DRG 193 ==
LOC: EC 13:35 → 3OBS 15:25 → OBSVTOIN 10-11 09:36 → 5MS5E 10-11 15:28
PROVIDERS: ADMIT Family Medicine; ATTEND Family Medicine
DX: J18.9 Pneumonia, unspecified organism (principal); G93.40 Encephalopathy, unspecified; G31.83 Neurocognitive disorder with Lewy bodies; F02.80 Dementia in other diseases classified elsewhere, unspecified severity, without behavioral disturbance, psychotic disturbance, mood disturbance, and anxiety; F17.200 Nicotine dependence, unspecified, uncomplicated; F90.9 Attention-deficit hyperactivity disorder, unspecified type; K21.9 Gastro-esophageal reflux disease without esophagitis; F32.9 Major depressive disorder, single episode, unspecified; F41.9 Anxiety disorder, unspecified; R45.1 Restlessness and agitation; R29.6 Repeated falls; Z79.899 Other long term (current) drug therapy; Z88.8 Allergy status to other drugs, medicaments and biological substances
CPT/HCPCS: 36415; 70450; 71020; 80053; 81003; 82550; 82553; 83735; 84100; 84484; 85025; 85610; 85730; 87040; 87086; 93005; 96365; 96366; 99285